=== PATIENT | male | born 1955 | race Caucasian/White ===

== ENCOUNTER → 2020-06-03 | Outpatient (CLI) | payer MEDICARE, OTHER ==
--- NOTE | 2020-06-03 18:11 | PE ---
Nuclear medicine PET/CT HISTORY: Lung carcinoma, initial Patient received 9.5 mCi F-18 FDG intravenously in delayed scanning was performed from the skull base to the mid thighs. Localization and attenuation correction CT scan was performed. No comparisons available Chest and neck: There is no supraclavicular or cervical adenopathy. Patient's mass is present in the superior mediastinum extending to the retrocaval pretracheal region and encases the trachea, portion of the right mainstem bronchus anteriorly, causes mass effect on the superior vena cava and shows ass ociated hypermetabolic uptake, SUV 14.9. There is no additional lung mass, no pleural or pericardial effusion. No additional hypermetabolic uptake. There are coronary artery calcifications present. No c ervical or supraclavicular adenopathy. No axillary adenopathy. ABDOMEN: There are dependent gallstones present. Aortic stent graft is in place. No evident adrenal m ass. No liver mass or ascites. No suspicious uptake. Abnormal thickening of the sigmoid colon is inde terminate, there is an apple core type lesion present on axial image #2008 but only mild uptake, SUV 3.1 extensive diverticular changes are present within the visualized colon. Prostate shows associated calcifications. Postop changes are noted to the left groin. High dense material is retained within t he descending and sigmoid colon. Abdominal aortic aneurysm measures 6.3 cm in AP dimension. Osseous structures show no suspicious uptake. IMPRESSION: Findings consistent with patient's history of lung carcinoma. Cannot exclude sigmoid colo n mass, recommend endoscopy.
== END | disposition home or self-care (01) ==
LOC: RADPETMAIN 11:38
PROVIDERS: ATTEND Radiology Radiation Oncology
DX: R91.8 Other nonspecific abnormal finding of lung field (principal)
CPT/HCPCS: 78815; A9552

== ENCOUNTER 2020-06-09 11:55 | Day surgery (SDC) | payer MEDICARE, OTHER ==
[2020-06-07 10:40] VITALS: BMI 29.5
[~2020-06-09 11:55] MED LIST: ACETAMINOPHEN TAB 500 MG TAB PO PRN; DEXAMETHASONE SOD PHOSPHATE 4 MG/ML 1 ML VIAL IV ONE; HEPARIN SODIUM,PORCINE 5,000 UNIT/ML 1 ML VIAL SQ PRN; HYDROmorphone 0.5 MG/0.5 ML SYRINGE IVP PRN; LACTATED RINGERS 1,000 ML IV SCH; LIDOCAINE 1% (10MG/ML) FOR IV START INTRADERMA PRN; MIDAZOLAM 2 MG/2 ML VIAL IV PRN; ONDANSETRON 4 MG/2 ML VIAL IVP ONE; Pre Op ABX Message 1 EACH MISC MISCELLANE ONE
--- NOTE | 2020-06-09 14:02 | P.GSHP ---
History of Present Illness H&P Date: 06/09/20 Chief Complaint: Lung cancer 64-year-old male recently diagnosed with right lung cancer. Here today for Port-A-Cath placement. Believes he is starting his chemotherapy next week. He has not had a port previously. Past Medical History Past Medical History: Cancer, Chest Pain / Angina, Hearing Disorder / Deafness, Hyperlipidemia, Myocardial Infarction ([place]) Additional Past Medical History / Comment(s): recent hospitalization [facility] d/t coughing up blood dx cancer had silicone stent placed in throat and 3 radation tx. difficulty swallowing. rt ear hearing aid Last Myocardial Infarction Date:: 1993 History of Any Multi-Drug Resistant Organisms: None Reported Past Surgical History: Back Surgery Additional Past Surgical History / Comment(s): back sx 2x for pinched nerves. silicone stent in throat at [facility] 05/26. surgery to repair aorta Past Anesthesia/Blood Transfusion Reactions: No Reported Reaction Smoking Status: Former smoker - Past Family History Father Family Medical History: Myocardial Infarction ([place]) Additional Family Medical History / Comment(s): at 59 r\t heart attack Medications and Allergies Home Medications Medication Instructions Recorded Confirmed Type Nitroglycerin Sl Tabs [Nitrostat] 0.4 mg SUBLINGUAL Q5M PRN #25 tab 06/29/14 06/09/20 Rx Rosuvastatin [Crestor] 20 mg PO DAILY 06/07/20 06/09/20 History Enalapril Maleate 1 tab PO DAILY 06/09/20 06/09/20 History Allergies Allergy/AdvReac Type Severity Reaction Status Date / Time No Known Allergies Allergy Verified 06/09/20 12:47 Surgical - Exam Vital Signs Temp Pulse Resp BP Pulse Ox 98.0 F 63 16 132/71 98 06/09/20 12:45 06/09/20 12:45 06/09/20 12:45 06/09/20 12:45 06/09/20 12:45 Physical exam: General: Well-developed, well-nourished HEENT: Normocephalic, sclerae nonicteric Abdomen: Nontender, nondistended Extremities: No edema Neuro: Alert and oriented Assessment and Plan (1) Lung cancer Narrative/Plan: Will proceed with Port-A-Cath placement at this time. Risks of bleeding, infection, DVT, pneumothorax, catheter malfunction, anesthesia related complications were discussed. The patient understands and wishes to proceed. Current Visit: Yes Status: Acute Code(s): C34.90 - MALIGNANT NEOPLASM OF UNSP PART OF UNSP BRONCHUS OR LUNG SNOMED Code(s): 040495603
[2020-06-09] MEDS ORDERED: PROPOFOL 10 MG/ML 20 ML VIAL IV ONE (14:20)
[2020-06-09] MEDS ORDERED: LIDOCAINE 1% INJ 10MG/ML (20 ML MDV) ONE (14:20)
[2020-06-09] MEDS ORDERED: ePHEDrine SULFATE/0.9% NACL/PF 50 MG/5 ML SYRINGE IV ONE (14:20)
[2020-06-09] MEDS ORDERED: fentaNYL (PF) 50 MCG/ML 2 ML AMP ONE (14:20)
[2020-06-09] MEDS ORDERED: MIDAZOLAM 2 MG/2 ML VIAL ONE (14:20)
[2020-06-09] MEDS ORDERED: LIDOCAINE 1% INJ 10MG/ML (20 ML MDV) SQ ONE (14:50)
[2020-06-09] MEDS ORDERED: SODIUM CHLORIDE 0.9% 100 ML with ceFAZolin 2,000 MG IV ONE ×2 (14:53)
[2020-06-09] MEDS ORDERED: LACTATED RINGERS 1,000 ML IV ONE (15:15)
[2020-06-09] MEDS ORDERED: NALOXONE 0.4 MG/ML 1 ML VIAL IV PRN (15:16)
[2020-06-09] MEDS ORDERED: HYDROcodone/APAP 5-325MG 1 EACH TAB PO PRN (15:16)
--- NOTE | 2020-06-09 15:18 | P.OP ---
Date of Procedure: 06/09/20 Procedure(s) Performed: PREOPERATIVE DIAGNOSIS: Lung cancer POSTOPERATIVE DIAGNOSIS: Same PROCEDURE: Port-A-Cath placement with fluoroscopic and ultrasound guidance SURGEON: Raghu EBL: Minimal ANESTHESIA: Sedation COMPLICATIONS: None OPERATIVE PROCEDURE: Patient was brought and placed on the operative table in the supine position. The patient was sedated per anesthesia that time. The chest and neck were prepped and draped in usual sterile fashion. The ultrasound probe was used to identify the location of the right internal jugular vein. The skin was localized with lidocaine. The Seldinger needle was advanced into the IJ under ultrasound guidance. The wire was advanced through the needle under fluoroscopic guidance into the superior vena cava. A port pocket was created in the right infraclavicular location. The catheter was tunneled from the wire entrance site to the port pocket. The port was then connected to the catheter. The dilator introducer was threaded over the guidewire. The guidewire and dilator were then removed. The catheter was advanced through the introducer and introducer was then removed. The tip was seen to be in the right atrial junction via fluoroscopy. A picture of the radiograph showing the tip at the radial digital junction was taken. Port was flushed with both saline and a Hep- Lock solution. There was good flow both in and out of the port. The port was sutured in underlying tissues using 3-0 silk sutures. The subcutaneous tissues were reapproximated using 3-0 Vicryl sutures and the skin at both locations using 4-0 Monocryl sutures. Skin glue and sterile dressings then applied. DISPOSITION: Stable to recovery room
[2020-06-09 15:22] VITALS: TEMP 97.2
--- NOTE | 2020-06-09 15:26 | FL ---
Fluoroscopy HISTORY: Central venous catheter placement 8 seconds fluoroscopy time supplied to the referring clinician. 1 intraoperative C-arm images docume nt the procedure. See dictated report from general surgery.
[2020-06-09 15:46] VITALS: RESP 16
[2020-06-09 16:24] VITALS: BP 131/74; PULSE 59
--- NOTE | 2020-06-09 16:37 | XR ---
EXAMINATION TYPE: XR chest 1V confirm line [facility] DATE OF EXAM: 06/09/2020 COMPARISON: 06/27/2014 HISTORY: Check line placement TECHNIQUE: Single view FINDINGS: There is right jugular catheter with tip in the superior vena cava. There is some minimal a telectasis at the lung bases. There is no heart failure. There is poor inspiration. IMPRESSION: Central venous catheter in good position. Mild subsegmental atelectasis at the lung bases is new compared to old exam.
== END 2020-06-09 16:54 | disposition home or self-care (01) ==
LOC: OR 11:55
PROVIDERS: ATTEND Surgery
DX: C34.91 Malignant neoplasm of unspecified part of right bronchus or lung (principal); H91.90 Unspecified hearing loss, unspecified ear; E78.5 Hyperlipidemia, unspecified; I25.2 Old myocardial infarction; I25.10 Atherosclerotic heart disease of native coronary artery without angina pectoris; Z96.89 Presence of other specified functional implants; Z92.3 Personal history of irradiation; Z97.4 Presence of external hearing-aid; Z98.890 Other specified postprocedural states; Z87.891 Personal history of nicotine dependence; Z79.899 Other long term (current) drug therapy; Z97.2 Presence of dental prosthetic device (complete) (partial); Z82.49 Family history of ischemic heart disease and other diseases of the circulatory system
CPT/HCPCS: 36561; 77001; C1788; J2250; J1644; J1100; J2405; J0690; J2001; J3010; J1642; J2704

== ENCOUNTER 2020-10-31 09:28 | Day surgery (SDC) | payer MEDICARE, OTHER ==
[2020-10-31 10:09] VITALS: TEMP 98.2
[2020-10-31 10:30] VITALS: BP 123/71; PULSE 57; RESP 16
--- NOTE | 2020-10-31 10:57 | US ---
ULTRASOUND GUIDED CORE BIOPSY right shoulder: CLINICAL HISTORY: Right shoulder mass FINDINGS: The procedure was explained to the patient. The risks, complications, benefits and alternatives were discussed and any questions were answered. Informed consent was obtained. Patient was placed supin e on the ultrasound table and prepped and draped in the usual sterile fashion. Utilizing a 18-gauge core biopsy needle, 3 passes were made into the requested right shoulder mass. Patient was stable throughout the procedure. Pathology is pending. All elements of maximal barrier sterile technique were utilized. IMPRESSION: 1. Successful ultrasound guided core biopsy right shoulder mass.
== END 2020-10-31 10:25 | disposition home or self-care (01) ==
LOC: RADPROMAIN 09:28
PROVIDERS: ATTEND Internal Medicine Hematology & Oncology
DX: C49.11 Malignant neoplasm of connective and soft tissue of right upper limb, including shoulder (principal)
CPT/HCPCS: 20206; 76942; 88305; 88341; 88342

== ENCOUNTER → 2020-11-25 | Outpatient (CLI) | payer MEDICARE, OTHER ==
--- NOTE | 2020-11-29 10:09 | PE ---
EXAMINATION TYPE: PET CT fusion skull to thigh DATE OF EXAM: 11/27/2020 COMPARISON: No prior CT available. Prior PET/CT: 06/03/2020 HISTORY: Lung carcinoma TECHNIQUE: Following the intravenous administration of 12.6 mCi of F-18 FDG, whole body images are p erformed from the skull base to the midthigh. Images are reviewed on the computer in the coronal, ax ial, and sagittal planes. Reconstructed rotating images are created on independent workstation and r eviewed on the computer. A localization and attenuation correction CT is performed in conjunction w ith the PET scan. DLP: 500.31 mGycm SCAN: Subsequent Blood glucose: 87 mg/dL Average Mediastinum SUV: 1.44 Average Liver SUV: 2.05 FINDINGS: NECK: No abnormal soft tissue uptake. THORAX: There is a new punctate hyperintensity in the sternoclavicular notch, image 66, with an SUV v alue of 2.5 suspicious for metastasis. There is a punctate hyperintensity in the left paratracheal region superior mediastinum could be a sm all metastatic lymph node with an SUV value of 3.07. Image 69. There is a subcarinal lymph node with elevated uptake, image 89, SUV 3.72 suspicious for metastasis. There is intense uptake within the right paratracheal region with an SUV value of 6.09 compatible wit h primary or metastatic neoplasm. This is smaller than on the comparison. However, new mild uptake ap pears to be within the right suprahilar infiltrate with an SUV value of 3.17 suspicious for neoplasm. There is new subtle uptake within the right axillary region. This small lymph node has an SUV value 1 .18 which is nonspecific but could be inflammatory or an early metastatic lesion. There is a new focus of soft tissue uptake within the lateral right lower chest, image 117. This has an SUV value of 21.86 compatible with neoplasm. ABDOMEN: There is a new small focus of radiotracer accumulation which appears to lie within the right adrenal gland, image 136, SUV value 4.55. There appears to be some bilateral ureteral contrast present. Para-aortic node is not excluded at the mid abdomen level, image 179. PELVIS: There is a new soft tissue focus just posterior to the hamstring muscles on the left, image 2 71, SUV value 7.08 suspicious for soft tissue metastatic lesion. There is a new lateral right flank soft tissue uptake, image 199 SUV 2.87. OSSEOUS STRUCTURES: There is a new focus of radiotracer within the left C5 facet region. This has an SUV value 11.89. Mikayla ge 49. There is a new focus of radiotracer accumulation within the anterior lateral T11 vertebral body with an SUV value of 14.37 compatible with neoplasm. LOCALIZATION CT: There may be some asymmetry within the right portion of the hypopharynx. Focal uptak e is not identified. The mediastinal mass currently is estimated to measure 2.2 x 3.2 cm which is sma ller than comparison. Consolidation within the right upper lobe is new. Ascending thoracic aorta at t he level of main pulmonary artery is 4.1 cm previously. Main pulmonary artery at the bifurcation talon ures 2.5 cm. Coronary artery calcification is present. Cholelithiasis is present. Aortic stent is pre sent through the abdominal aortic aneurysm. COMPARISON: Areas of uptake discussed above are new or changes are discussed above. IMPRESSION: 1. Multiple new areas of radiotracer accumulation includes soft tissue lesion posterior left upper th igh, right lateral pelvis, right lateral lower chest wall. 2. Lesion within the right superior mediastinum is diminished in size from comparison. The new consol idation adjacent within the lung field has uptake and is suspicious for metastasis. 3. New osseous metastasis within the mid cervical spine and lower thoracic spine. 4. 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 5. Uptake within the left ureter versus a periaortic metastatic lymph node. 6. Abdominal aortic aneurysm with a stent is present. 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
== END | disposition home or self-care (01) ==
LOC: RADPETMAIN 10:37
PROVIDERS: ATTEND Internal Medicine Hematology & Oncology
DX: C34.11 Malignant neoplasm of upper lobe, right bronchus or lung (principal); C79.51 Secondary malignant neoplasm of bone; I71.4 Abdominal aortic aneurysm, without rupture; I71.2 Thoracic aortic aneurysm, without rupture; M79.9 Soft tissue disorder, unspecified
CPT/HCPCS: 78815; A9552